=== PATIENT | female | born 1930 | race Two or more races ===

== ENCOUNTER 2020-10-16 00:33 | Inpatient (IN) | payer MEDICAID, MEDICARE ==
[~2020-10-16] VITALS: Ht 139.7 cm; Wt 55.3 kg
[2020-10-16 04:15] VITALS: BP 136/49
--- NOTE | 2020-10-16 04:15 | NUR ---
MIXER RUNNERPIPE CONNECTOR NOTE PATIENT IS A [facility] DIRECT ADMIT. PATIENT TRANSFERRED TO BED BY EMT. PATIENT IS A/OX2, AZERI SPEAKING. TOLERATING ROOM AIR. RESPIRATIONS ARE EVEN AND UNLABORED. NO S/S SOB NOTED. NO C/O CHEST PAIN AT THIS TIME. NO OTHER PAIN REPORTED. EXTERNAL TELE MONITOR READS SINUS VIRGINIE HR 38. ASYMPTOMATIC. WILL MAKE MD AWARE. IN NO APPARENT DISTRESS. SPARES SCHEDULER OBTAINED VITAL SIGNS ANC COMPLETED BELONGINGS LIST. RN AND SPARES SCHEDULER SIGNED BELONGING LIST D/T PATIENT UNABLE TO SIGN. INITAL PHYSICAL ASSESSMENT COMPLETED AT THIS TIME. SKIN ASSESSMENT COMPLETED, PHOTOS TAKEN AND PLACED IN CHART. BED IS LOW AND LOCKED, HOB ELEVATED IN SEMI FOWLERS, SIDE RIALS UP X3. CALL LIGHT WITHIN REACH. WILL CONTINUE TO MONITOR.
--- NOTE | 2020-10-16 05:00 | NUR ---
telemarketing agent note informed dr. bhatia direct admit is here to place admission orders. also informed him patients hr is 38. patient is asymptomatic. MD stated to watch hr and symptoms. informed MD there is no home meds list in patients chart. will continue to monitor.
[2020-10-16] MEDS ORDERED: ONDANSETRON HCL/PF 4 MG/2 ML VIAL IVP PRN (05:30)
[2020-10-16] MEDS ORDERED: ZOLPIDEM TARTRATE 5 MG TABLET PO PRN (05:30)
[2020-10-16] MEDS ORDERED: MAGNESIUM HYDROXIDE 30 ML UDC PO PRN (05:30)
[2020-10-16] MEDS ORDERED: Z GUARD REMEDY 2 OZ OINT TP PRN (05:30)
[2020-10-16] MEDS ORDERED: MAG HYDROX/AL HYDROX/SIMETH 30 ML UDC PO PRN (05:30)
[2020-10-16] MEDS ORDERED: HYDROCODONE/APAP 5/325MG TABLET PO PRN (05:30)
--- NOTE | 2020-10-16 06:50 | NUR ---
LAW FIRM PARTNER NOTE INFORMED DR. HER VTE SCORE 3. TELEPHONE ORDER LOVENOX 30MG. ORDER READ BACK NOTED AND CARRIED OUT. ASKED IF HE WOULD LIKE PATIENT PLACED ON FLUIDS. TELEPHONE ORDER NS @75ML/HR. ORDER READ BACK NOTED AND CARRIED OUT. WILL CONTINUE TO MONITOR.
[2020-10-16 07:37] LABS: BASOPHILS # (AUTO) 0.1 /CMM (0.0-0.2); BASOPHILS % (AUTO) 0.9 % (0.0-2.0); EOSINOPHILS % (AUTO) 4.2 % (0.0-6.0); HEMATOCRIT 38 % (33-45); HEMOGLOBIN 11.8 g/dL (11.5-14.8); LYMPHOCYTES % (AUTO) 21.7 % (20.0-44.0); MEAN CORPUSCULAR HGB CONC 31 g/dl (31.0-36.0); MEAN CORPUSCULAR VOLUME 87 fL (82-100); MONOCYTES # (AUTO) 0.9 /CMM (0.1-1.30); MONOCYTES % (AUTO) 9.7 % (2.0-12.0); NEUTROPHILS # (AUTO) 5.7 /CMM (1.8-8.9); NEUTROPHILS % (AUTO) 63.5 % (43.0-81.0); PLATELET COUNT (AUTO) 410 /CMM (150-450); RED BLOOD CELL COUNT(AUTO) 4.34 MIL/uL (4.0-5.2)
[2020-10-16] MEDS ORDERED: LOSA50TA39 PO (07:37)
[2020-10-16] MEDS ORDERED: DICL75TA5 PO (07:37)
[2020-10-16] MEDS ORDERED: CLON0.1T PO (07:37)
[2020-10-16] MEDS ORDERED: DONE10TA44 PO (07:37)
[2020-10-16] MEDS ORDERED: MEMA21CA2 PO (07:37)
[2020-10-16] MEDS ORDERED: DILT120C47 PO (07:37)
[2020-10-16] MEDS ORDERED: NITR0.4T48 SL (07:37)
[2020-10-16] MEDS: IV NS 0.9% 1,000 ML IV PRN (07:41)
[2020-10-16 08:00] VITALS: BP_SYST 144; BP_SYST 174; BP_DIAS 49; BP_DIAS 59
--- NOTE | 2020-10-16 08:00 | NUR ---
PEDIATRIC SPORTS MEDICINE SPECIALIST NOTE PATIENT IN BED ,RESTING COMFORTABLY ,ON IVF ORDERED ON TELE MONITOR SB HR SB 38-40 , NO C\O CHEST PAIN AT THIS TIME , LFA HL INTACT AND FLUSHED WELL , BED IN LOWEST AND LOCKED POSITION , CALL LIGHT WITHIN TRACH
[2020-10-16 08:07] LABS: CALCIUM, SERUM 8.6 mg/dL (8.5-10.1); CARBON DIOXIDE 20 mmol/L (21-32); CHLORIDE 105 mmol/L (98-107); CREATININE 1.6 mg/dL (0.6-1.3); GLUCOSE 86 mg/dL (74-106); MAGNESIUM 2.3 mg/dL (1.8-2.4); PHOSPHORUS 4.3 mg/dL (2.5-4.9); POTASSIUM 5.1 mmol/L (3.5-5.1); SODIUM SERUM 137 mmol/L (136-145); UREA NITROGEN, BLOOD 51 mg/dL (7-18)
--- NOTE | 2020-10-16 08:17 | NUR ---
MANAGER CABLE CLOSING NOTE PATIENT IS RESTING IN BED. A/OX2, SETS[place] SPEAKING. NO RESP DISTRESS NOTED NO C/O PAIN THROUGHOUT SHIFT. EXTERNAL TELE MONITOR READS SINUS VIRGINIE. REMAINS ASYMPTOMATIC. NO DISTRESS. FAMILY CALLED TO OBTAIN MED RECON, INFORMED ME SOMEONE JUST CALLED, MED RECON COMPLETED. IV ACCESS IN LFA#20 RUNNING NS@75ML/HR. BED REMAINS LOW AND LOCKED, HOB ELEVATED IN SEMI FOWLERS, SIDE RIALS UP X3. CALL LIGHT WITHIN REACH. WILL ENDORSE TO NEXT SHIFT.
--- NOTE | 2020-10-16 08:30 | NUR ---
EMERGENCY DISPATCH OPERATOR NOTE REPORTED TO DR LANG THAT HR ON TELE MONITOR SB 40 -38 STAT EKG DONE
[2020-10-16 08:34] LABS: CHOLESTEROL 133 mg/dL (<200); HDL CHOLESTEROL 53 mg/dL (40-60); LDL 75 mg/dL (0-99); TRIGLYCERIDES 46 mg/dL (30-150)
[2020-10-16] MEDS: hydrALAZINE HCL 50 MG TABLET PO SCH ×3 (09:00→16:17)
[2020-10-16] MEDS ORDERED: ENOXAPARIN SODIUM 30 MG/0.3 ML DISP.SYRIN SQ SCH (09:00)
[2020-10-16] MEDS: MEMANTINE HCL 5 MG TABLET PO SCH ×2 (09:08→16:16)
[2020-10-16] MEDS: NITROGLYCERIN 30 GM TUBE TP SCH ×2 (09:11→21:17)
[2020-10-16] MEDS: HEPARIN SODIUM, PORCINE 5000 UNITS/1 ML VIAL SQ SCH ×2 (09:17→21:23)
[2020-10-16 09:42] LABS: THYROID STIMULATING HORMONE 4.351 uIU/mL (0.358-3.74)
--- NOTE | 2020-10-16 09:50 | NUR ---
CALL CENTER SUPPORT CONSULTANT NOT DR LANG AWARE EKG RESULT AWARE THAT BP 174/59 HR 40 CHEST X RAY DONE ORDERED
--- NOTE | 2020-10-16 10:36 | NUR ---
WOUND CARE CONSULT: PT PRESENTS WITH LOWER BUTTOCK/THIGH SKIN DISCOLORATION, RAISED CALLUS TO LEFT FOOT (NONTENDER) AND SKIN GROWTHS TO BACK AND UNDER BREASTS, PRESENT ON ADMISSION. PT IS INCONTINENT. RECOMMENDATIONS MADE FOR SKIN PROTECTION. DISCUSSED WITH NURSING STAFF. PT ABLE TO ASSIST WITH TURNING AND REPOSITIONING IN BED. MD IN AGREEMENT WITH PLAN OF CARE.
--- NOTE | 2020-10-16 11:49 | NUR ---
teletypesetter monitor note 2d echo done and new hl on rt hand shanti 24 inserted with good blood return per Andra stafford to place mid line, will carried out
[2020-10-16 12:45] VITALS: BP 174/35
--- NOTE | 2020-10-16 13:10 | NUR ---
MACHINE SET UP OPERATOR NOTE THYROID US DOING NOW
[2020-10-16] MEDS: SOD FERRIC GLUC 125 MG in IV NS 0.9% 100 ML IV SCH (13:47)
[2020-10-16] MEDS: ACETAMINOPHEN 325 MG TABLET PO PRN (13:54)
[2020-10-16] MEDS ORDERED: NITROGLYCERIN 0.4 MG/TAB BOTTLE SL STA (14:08)
--- NOTE | 2020-10-16 14:13 | NUR ---
MONITOR WORKER NOTE C\O CHEST PAIN BP 151/59 HR 59 ,PLACED ON 02 2L ,SATURATION 100% DR LANG NOTIFIED WITH ORDER NITROGLYCERIN SL ,ORDER CARRIED OUT
--- NOTE | 2020-10-16 14:30 | NUR ---
tele rnn note bp120/35 saturation 100 %on 2l hr 45 stated a little better ,now resting in bed ,will monitor closely
--- NOTE | 2020-10-16 15:37 | NUR ---
returned telephone equipment appraiser note mid line placed as ordered on lt upper arm shanti 18
[2020-10-16 16:00] VITALS: BP 123/48
[2020-10-16 16:32] VITALS: BP 123/48
--- NOTE | 2020-10-16 17:33 | NUR ---
MEDICAL RECORD SPECIALIST NOTE ATE 5% OF DINNER STILL DONT HAVE APPETITE
--- NOTE | 2020-10-16 18:35 | NUR ---
DAY CARE AIDE NOTE PATIENT RESTING COMFORTABLY, ON IVF ORDERED , KEEP CLEAN DRY, NO SOB NOTED AT THIS TIME ,WILL CONT TO MONITOR
--- NOTE | 2020-10-16 19:15 | NUR ---
TELE/RN OPENING NOTES: RECEIVED PATIENT RESTING IN BED. A/OX2, ANGUILLAN SPEAKING. VERBALLY RESPONSIVE AND ABLE TO MAKE NEEDS KNOWN. NOT IN RESP DISTRESS AT THIS TIME. NO C/O PAIN. TELE MONITOR READS READING OF SINUS VIRGINIE. REMAINS ASYMPTOMATIC. IV ACCESS IN RIGHT HAND #24G. MELIZA MIDLINE 18G RUNNING NS@75ML/HR. SAFETY PRECAUTIONS ARE IN PLACE. BED REMAINS LOW AND LOCKED, HOB ELEVATED IN SEMI FOWLERS, SIDE RAILS UP X3. CALL LIGHT WITHIN REACH. WILL CONTINUE TO MONITOR ACCORDINGLY.
[2020-10-16 20:00] VITALS: BP 135/63
[2020-10-17] VITALS (7 sets, daily range): BP systolic 128–156; BP diastolic 48–70
[2020-10-17] MEDS: IV NS 0.9% 1,000 ML IV PRN (02:07)
--- NOTE | 2020-10-17 06:50 | NUR ---
TELE/RN CLOSING NOTES: PATIENT REMAINS RESTING IN BED. A/OX2, PASHTO SPEAKING ONLY. VERBALLY RESPONSIVE AND ABLE TO MAKE NEEDS KNOWN. NO S/S OF DISTRESS. NO C/O PAIN. TELE MONITOR READS READING OF SINUS VIRGINIE AT THIS TIME 50S. IV ACCESS IN RIGHT HAND #24G. MELIZA MIDLINE 18G RUNNING NS@75ML/HR. SAFETY PRECAUTIONS ARE IN PLACE. BED REMAINS LOW AND LOCKED, HOB ELEVATED IN SEMI FOWLERS, SIDE RAILS UP X3. CALL LIGHT WITHIN REACH. ALL DUE MEDS GIVEN ORDERED. ALL NURSING NEEDS MET AND RENDERED. WILL ENDORSE TO DAY SHIFT RN.
--- NOTE | 2020-10-17 08:00 | NUR ---
RN Opening Note Received patient in bed, AO x 2 Montenegrin speaking, able to responds all stimuli, does no appears pain or discomfort. Respiratory even and unlabored on room air, no distress or SOB observed. Skin is warm to touch keep clean/dry, intact IV site on left upper arm midline and right hand 24g. Kept locked bed with elevated HOB for ensure airway and aspiration precaution and lowest position for safety. Call light within reach, will continue to monitor.
[2020-10-17] MEDS: hydrALAZINE HCL 50 MG TABLET PO SCH ×3 (08:34→17:00)
[2020-10-17] MEDS: MEMANTINE HCL 5 MG TABLET PO SCH ×2 (08:34→16:59)
[2020-10-17] MEDS: HEPARIN SODIUM, PORCINE 5000 UNITS/1 ML VIAL SQ SCH ×2 (08:38→21:51)
[2020-10-17 08:57] LABS: BASOPHILS # (AUTO) 0.1 /CMM (0.0-0.2); BASOPHILS % (AUTO) 0.7 % (0.0-2.0); EOSINOPHILS % (AUTO) 0.8 % (0.0-6.0); HEMATOCRIT 34 % (33-45); HEMOGLOBIN 10.6 g/dL (11.5-14.8); LYMPHOCYTES # (AUTO) 1.2 /CMM (0.8-4.8); LYMPHOCYTES % (AUTO) 13.4 % (20.0-44.0); MEAN CORPUSCULAR HGB CONC 32 g/dl (31.0-36.0); MEAN CORPUSCULAR VOLUME 86 fL (82-100); MONOCYTES # (AUTO) 0.6 /CMM (0.1-1.30); MONOCYTES % (AUTO) 6.5 % (2.0-12.0); NEUTROPHILS # (AUTO) 7.2 /CMM (1.8-8.9); NEUTROPHILS % (AUTO) 78.6 % (43.0-81.0); PLATELET COUNT (AUTO) 464 /CMM (150-450); WHITE BLOOD COUNT (AUTO) 9.1 K/uL (4.3-11.0)
[2020-10-17] MEDS ORDERED: AMLODIPINE BESYLATE 5 MG TABLET PO SCH (09:00)
[2020-10-17 09:10] LABS: ALANINE AMINOTRANSFERASE 74 U/L (12-78); ALBUMIN 2.6 g/dL (3.4-5.0); ALKALINE PHOSPHATASE 299 U/L (46-116); ASPARTATE AMINOTRANSFERASE 42 U/L (15-37); BILIRUBIN,TOTAL 0.2 mg/dL (0.2-1.0); CALCIUM, SERUM 8.5 mg/dL (8.5-10.1); CARBON DIOXIDE 19 mmol/L (21-32); CHLORIDE 109 mmol/L (98-107); CREATININE 1.4 mg/dL (0.6-1.3); GLUCOSE 168 mg/dL (74-106); MAGNESIUM 2.1 mg/dL (1.8-2.4); PHOSPHORUS 3.6 mg/dL (2.5-4.9); POTASSIUM 3.9 mmol/L (3.5-5.1); SODIUM SERUM 140 mmol/L (136-145); TOTAL PROTEIN, SERUM 6.9 g/dL (6.4-8.2); UREA NITROGEN, BLOOD 38 mg/dL (7-18)
[2020-10-17] MEDS: NITROGLYCERIN 30 GM TUBE TP SCH ×2 (09:16→21:00)
[2020-10-17] MEDS ORDERED: AMLO-212 PO (11:08)
--- NOTE | 2020-10-17 15:00 | NUR ---
Ambulance will tow picker patient around 1900 due to patient unable to transfer to wheel chair informed DTR/Joann regarding above. Address clarified with Joann and informed CM.
--- NOTE | 2020-10-17 15:21 | NUR ---
Honing Machine Operator Production consult requested by Dr. Wes Ozuna as patient is elderly. Patient is a 89 year-old female. Patient is primarily Danish speaking and per MD note patient has dementia. Patient was able to provide this SW verbal consent to speak with patient's daughter Ying . Patient informed this SW that patient will be discharged today and daughter will be taking care of her post-discharge. SW thanked the patient for this information. Plan: SW will follow-up with daughter iYng and Case Management team regarding discharge plan. SW will remain available for all needs regarding this patient.
[2020-10-17] MEDS: SOD FERRIC GLUC 125 MG in IV NS 0.9% 100 ML IV SCH (15:31)
--- NOTE | 2020-10-17 15:37 | NUR ---
CLINTON spoke with daughter Ying . Ying reported that Ying is the patient's primary caregiver. CLINTON assessed patient and family needs with Ying. CLINTON and Ying further discussed elderly resources and Ying was receptive to these resources. Ying inquired regarding patient medical care, CLINTON informed Ying that this was not in this SW scope of practice but can transfer this call to the nurse. Ying stated that this is not necessary that Ying will follow-up regarding patient medical care. CLINTON remains available for all needs regarding this patient.
--- NOTE | 2020-10-17 15:44 | NUR ---
SW provided the following resources in patient's chart to be provided to patient's family upon discharge. ABUSE PREVENTION: ELDER ABUSE HOTLINE (22/06) ; ADULT PROTECTIVE SERVICES HOTLINE ; LONG-TERM CARE EVY: [facility] Region; AREA ON AGING (HOTLINE) ADULT DAY HEALTH CARE CARE CENTERS: Private pay or [facility] funded adult day care: [facility] ; [place] [facility] [place] , [place]; [facility] , [place]; [facility] , [place]; [facility] , [place]; [facility] Adult Day Health Care , [place]; [facility] Adult [facility] , [place]; [facility] , [place]; [facility] Adult [place] , [place] ALZHEIMERS DISEASE/DEMENTIA: Alzheimers Association Helpline ; [facility] www.alz.org/inter-community medical center; [facility] Department of Aging www.lacity.org; Family Caregiver [place] www.caregiver.org; [place] Caregiver Resources Center/Family Support www.[facility].org CANCER RESOURCES: [place] Cancer Society www.cancer.org; Cancer Support Community www.CancerSupportVvsb.org: CancerCare www.cancercare.org; [facility] www.spark.org COMMUNITY HEALTH ASSOCIATIONS AARP www.aarp.org; ALS Association ; (ask for Dawna) www.als.org; [place] Diabetes Association www.diabetes.org; [place] Heart Association www.heart.org; [place] Lung Association www.lungusa.org; [place] Parkinson Disease Association www.apdaparkinson.org; [place] , www.redcross.org; Arthritis Foundation www.arthritis.org; Crohns & Colitis Foundation of [place] www.ccfa.org/chapters/[place]; National Multiple Sclerosis Society www.nationalmssociety.org; Myasthenia Gravis Foundation www.myasthenia-ca.org; National Stroke Association www.stroke.org CONSERVATORSHIP & GUARDIANSHIP AAR ; [facility] Legal Services ; Center for Health Care Rights ; Eldercare Information and Referral ; Podiatry Professor Foundation [facility]: [facility] Referral Service [facility] Legal Services Office of the Public Guardian [place] EYESIGHT DISORDER RESOURCES [place] Macular Degeneration Foundation ; Bramadhav Holly www.bramadhavinstitute.org Grief and Bereavement Resources: [place] , [facility] ; THE HOPE Connection , [facility] ; [facility] , [place] HEARING DISORDER RESOURCES [place] Telephone Access Program Deaf and Disabled Telecommunications Program www.ddtp.[facility].ca.gov; [facility] ([place]) ; Better [employer] Systems , [place]; GLADyana ([facility] Agency on Deafness) V/ TTY; Tar Worker , [place]; [place] Hearing Foundation -low income hearing aid assistance www.[facility]iringfoundation.org ; [place] [facility] HELP AT HOME CAREGIVER SUPPORT In Home Support Services (Must have Medi-Jatinder to be eligible) *Ask for a list of agencies that provide services to assist with care in the home. Local Senior Centers also have listings of care providers.
--- NOTE | 2020-10-17 17:05 | NUR ---
Given discharge instruction to REGINALDR/Joann by the phone include new Rx med and side effect of med.
[2020-10-17] MEDS: ACETAMINOPHEN 325 MG TABLET PO PRN (17:27)
--- NOTE | 2020-10-17 18:15 | NUR ---
RN Closing note Patient in bed resting, waiting ambulance for discharge, noticed low grade fever 99.8, given tylenol and applied ice pack, temperature is 98.9 now. Pt does no appears discomfort, skin is warm to touch keep clean/dry, wound picture taken before discharge. Respiratory even and unlabored on room air O2sat 9%, no sob or distress observed. Kept locked bed and elevated HOB for ensure airway and aspiration precaution, and lowest position for safety, bed alarm on at all the times, call light within reach, will endorse overcoiler.
--- NOTE | 2020-10-17 19:16 | NUR ---
MS RN OPENING NOTES PATIENT AWAKE IN BED. A/OX2; PRIMARY LANGUAGE BENINESE. ON RA; NO S/S OF ACUTE RESPIRATORY DISTRESS; BREATHING IS EVEN AND UNLABORED. PATIENT DENIES ANY PAIN AT THIS TIME. NO IV LINES PRESENT; PATIENT TO BE DISCHARGED HOME; AWAITING AMBULANCE TRANSPORTATION HOME. PER DAY SHIFT RN, DISCHARGE PAPERWORK COMPLETED; FAMILY AWARE OF DISCHARGE PLAN. SAFETY MEASURES IN PLACE AND PATIENT'S NEEDS MET. BED LOCKED, ALARM ON, HOB ELEVATED, SIDE RAILS X3, CALL LIGHT WITHIN REACH. WILL CONTINUE TO MONITOR.
--- NOTE | 2020-10-17 20:18 | NUR ---
MS RN NOTES PATIENT ON STANDBY FOR DISCHARGE HOME VIA AMBULANCE. VITAL SIGN - MANUAL BP:138/48, HR: 86, SPO2: 96 ON RA; RR: 18, TEMP: 97.9. PATIENT DENIES ANY SOB; BREATHING IS EVEN AND UNLABORED. NO C/O PAIN. WILL CONTINUE TO MONITOR. AMBULANCE DISPATCH CONTACT INFO:
[2020-10-18 00:05] VITALS: BP 148/53
--- NOTE | 2020-10-18 00:20 | NUR ---
MS MEDICAL RECEPTION NOTES PATIENT DISCHARGED HOME IN STABLE CONDITION; TRANSPORTATION VIA [facility]. IV LINES REMOVED. ID BAND REMOVED. ALL BELONGINGS WITH PATIENT. DISCHARGE INSTRUCTIONS GIVEN TO EMT, FAMILY AWARE OF DISCHARGE PLAN. VITAL SIGNS - BP: 148/53, HR: 76, RR: 18, TEMP: 99.3, SPO2: 97 ON RA. ESTER ([place]): [phone]
== END 2020-10-18 00:23 | disposition home health service (06) | DRG 203 ==
LOC: TELE 04:07 → MED 10-17 16:37
PROVIDERS: ADMIT Internal Medicine; ATTEND Internal Medicine
PROC: 05HY33Z Insertion of Infusion Device into Upper Vein, Percutaneous Approach (ICD-10-PCS; principal; 2020-10-16)
DX: M94.0 Chondrocostal junction syndrome [Tietze] (principal); G30.9 Alzheimer's disease, unspecified; F02.80 Dementia in other diseases classified elsewhere, unspecified severity, without behavioral disturbance, psychotic disturbance, mood disturbance, and anxiety; N17.0 Acute kidney failure with tubular necrosis; E05.90 Thyrotoxicosis, unspecified without thyrotoxic crisis or storm; R00.1 Bradycardia, unspecified; Z86.73 Personal history of transient ischemic attack (TIA), and cerebral infarction without residual deficits; I35.0 Nonrheumatic aortic (valve) stenosis; D50.9 Iron deficiency anemia, unspecified; G93.40 Encephalopathy, unspecified; I12.9 Hypertensive chronic kidney disease with stage 1 through stage 4 chronic kidney disease, or unspecified chronic kidney disease; N18.9 Chronic kidney disease, unspecified
CPT/HCPCS: 36410; 36415; 71045-TC; 76536-TC; 80048-TC; 80053-TC; 80061-TC; 82728-TC; 83540-TC; 83735-TC; 84100-TC; 84439-TC; 84443-TC; 84484-TC; 85025-TC; 87081-TC; 93307-TC; G0378; J1644; J2405; J2916; J3490; J7030